=== PATIENT | female | born 1945 | race African-American/Black ===

== ENCOUNTER 2024-09-05 09:10 | Emergency (ER) | payer MEDICARE, OTHER ==
[~2024-09-05] VITALS: Ht 167.6 cm; Wt 80.0 kg
[2024-09-05 09:15] VITALS: O2SAT 98
[2024-09-05 09:30] VITALS: PULSE 95; RESP 24; O2SAT 99
[2024-09-05] MEDS: NOREPINEPHRINE 8MG/250ML PMX 250 ML IV ONE ×2 (09:30→10:30)
[2024-09-05] MEDS ORDERED: FENTANYL 2500MCG/250ML PMX 250 ML IV ONE (09:45)
[2024-09-05] MEDS: SODIUM CHLORIDE 0.9% 1,000 ML IV ONE (09:45)
[2024-09-05] MEDS ORDERED: MIDAZOLAM HCL 2 MG/2 ML VIAL IV PRN (09:45)
[2024-09-05] MEDS: FENTANYL CITRATE/PF 1,000 MCG in DEXT 5% WATER 80 ML IV PRN (10:00)
[2024-09-05 10:09] LABS: BASOPHILS % 0.8 % (0.0-2.0); EOSINOPHILS % 2.5 % (0.0-5.0); HEMATOCRIT. 30.3 % (36.0-48.0); MEAN CORPUSCULAR HEMOGLOBIN 27.9 pg (28.0-32.0); MEAN CORPUSCULAR HGB CONC 33.1 g/dL (31.0-37.0); MEAN CORPUSCULAR VOLUME 84.2 fL (81.0-99.0); MEAN PLATELET VOLUME 9.2 fl (7.4-10.4); MONOCYTES % 5.4 % (2.0-8.0); NEUTROPHILS % 60.3 % (40.0-76.0); PLATELET 301 x1000/uL (130-400); RED CELL DISTRIBUTION WIDTH 15.2 % (11.6-14.6); WHITE BLOOD COUNT 6.4 x1000/uL (4.5-11.0)
[2024-09-05] MEDS ORDERED: VASOPRESSIN 20 UNIT in SODIUM CHLORIDE 0.9% 99 ML IV STA (10:09)
[2024-09-05 10:17] LABS: CHLORIDE 105 mEq/L (98-107); POTASSIUM 3.2 mEq/L (3.5-5.1); SODIUM 138 mEq/L (136-145)
[2024-09-05 10:18] LABS: CARBON DIOXIDE 22 mEq/L (21-32)
[2024-09-05 10:19] LABS: CALCIUM 8.5 mg/dL (8.7-10.4)
[2024-09-05 10:23] LABS: GLUCOSE 278 mg/dL (70-105)
[2024-09-05 10:24] LABS: UREA NITROGEN BLOOD 11 mg/dL (9-23)
[2024-09-05 10:25] LABS: TROPONIN I HIGH SENSITIVITY 10 ng/L (3.0-34)
[2024-09-05 10:36] LABS: INR 1.1; PROTHROMBIN TIME 11.9 sec (9.6-11.0)
[2024-09-05] MEDS: VASOPRESSIN 20 UNIT in SODIUM CHLORIDE 0.9% 99 ML IV PRN (10:50)
[2024-09-05 11:06] LABS: BG BASE EXCESS -4.6 mmol/L (-2.0-3.0); BG CARBOXYHEMOGLOBIN 0.2 % (0.5-1.5); BG DEOXYHEMOGLOBIN 0.3 % (0.0-5.0); BG FRACTION INSPIRED OXYGEN 100; BG HCO3 ACT 19.8 mmol/L (21.0-28.0); BG METHEMOGLOBIN 0.3 % (0.5-1.5); BG OXYGEN SATURATION 99.7 % (94.0-98.0); BG OXYHEMOGLOBIN 99.2 % (94.0-98.0); BG PCO2 34.1 mmHg (32.0-45.0); BG PH 7.381 (7.350-7.450); BG PO2 455.4 mmHg (83.0-108.0); BG SAMPLE SITE RIGHT BRACHIAL; BG VENT MODE VENT - AC
[2024-09-05 11:19] LABS: ETHANOL BLOOD < 10 mg/dL (<10)
[2024-09-05 11:32] VITALS: PULSE 74; RESP 17; O2SAT 99
[2024-09-05] MEDS ORDERED: EPINEPHRINE 5 MG in SODIUM CHLORIDE 0.9% 245 ML IV STA (11:57)
[2024-09-05 12:05] LABS: LACTIC ACID 4.4 mmol/L (0.4-2.0)
[2024-09-05 12:08] LABS: CLARITY URINE CLOUDY (CLEAR); COLOR URINE YELLOW (YELLOW); GLUCOSE URINE NEGATIVE (NEGATIVE); KETONES URINE NEGATIVE (NEGATIVE); LEUKOCYTE ESTERASE URINE NEGATIVE (NEGATIVE); NITRITE URINE NEGATIVE (NEGATIVE); OCCULT BLOOD URINE NEGATIVE (NEGATIVE); PROTEIN URINE NEGATIVE (NEGATIVE); SPECIFIC GRAVITY URINE 1.012 (1.005-1.030); UROBILINOGEN URINE 0.2 E.U./dL (0.2-1.0)
[2024-09-05 12:25] LABS: *AMPHETAMINES SCREEN URINE NEGATIVE (NEGATIVE); *BARBITURATES SCREEN URINE NEGATIVE (NEGATIVE); *BENZODIAZEPINES SCREEN URINE NEGATIVE (NEGATIVE); *COCAINE SCREEN URINE NEGATIVE (NEGATIVE); CANNABINOID URINE SCREEN NEGATIVE (NEGATIVE); ECSTASY MDMA SCREEN URINE NEGATIVE (NEGATIVE); METHADONE URINE SCREEN NEGATIVE (NEGATIVE); OPIATES URINE SCREEN NEGATIVE (NEGATIVE); PHENCYCLIDINE URINE SCREEN NEGATIVE (NEGATIVE)
[2024-09-05 12:40] LABS: BACTERIA URINE 1+; RBC URINE 0-2 /hpf (0-2); SQUAMOUS EPITHELIAL CELL URINE NONE SEEN /lpf (RARE/1+); WBC URINE 0-2 /hpf (0-2); YEAST URINE NONE SEEN
[2024-09-05] MEDS: EPINEPHRINE 5 MG in SODIUM CHLORIDE 0.9% 245 ML IV PRN (13:00)
[2024-09-05 13:16] LABS: TROPONIN I HIGH SENSITIVITY 28 ng/L (3.0-34)
[2024-09-05 14:10] VITALS: PULSE 60; RESP 14
[2024-09-05] MEDS ORDERED: PHENYLEPHRINE 100 MG in DEXT 5% WATER 240 ML IV PRN (14:15)
[2024-09-05] MEDS ORDERED: ACETAMINOPHEN 325MG TABLET PO PRN (14:30)
[2024-09-05] MEDS ORDERED: ONDANSETRON HCL 4MG/2ML INJ IV PRN (14:30)
[2024-09-05] MEDS: PHENYLEPHRINE 100 MG in DEXT 5% WATER 240 ML IV PRN (14:42)
[2024-09-05] MEDS: SODIUM CHLORIDE 0.9% 1,000 ML IV SCH (15:00)
[2024-09-05] MEDS: PIPERACILLIN/TAZO 3.375G/50ML 50 ML IV SCH (15:00)
[2024-09-05] MEDS: KCL 20MEQ/100ML PREMIX 100 ML IV NR (16:24)
[2024-09-05 17:30] VITALS: PULSE 60; RESP 14; O2SAT 99
[2024-09-05] MEDS: INSULIN LISPRO 100 UNITS/ML SUBCUT SCH (18:00)
[2024-09-05] MEDS ORDERED: DEXTROSE 50% WATER 50ML SYRINGE IV PRN ×3 (18:00→21:45)
[2024-09-05] MEDS: BLOOD SUGAR DIAGNOSTIC STRIP TEST SCH ×2 (18:31→22:00)
[2024-09-05] MEDS ORDERED: NOREPINEPHRINE 8MG/250ML PMX 250 ML IV PRN (19:00)
[2024-09-05] MEDS: INSULIN REGULAR (HUMULIN R) 1000UNITS/10ML VIAL SUBCUT NR (19:25)
[2024-09-05] MEDS: SODIUM BICARBONATE 8.4% 50MEQ/50ML SYR IV NR ×4 (20:03→23:50)
[2024-09-05] MEDS ORDERED: LACTATED RINGERS 1,000 ML IV NR (20:15)
[2024-09-05 20:49] LABS: HEMATOCRIT. 33.4 % (36.0-48.0); HEMOGLOBIN. 10.4 g/dL (12.0-16.0); MEAN CORPUSCULAR HEMOGLOBIN 27.1 pg (28.0-32.0); MEAN CORPUSCULAR VOLUME 87.4 fL (81.0-99.0); MEAN PLATELET VOLUME 8.9 fl (7.4-10.4); PLATELET 240 x1000/uL (130-400); RED BLOOD CELL COUNT 3.82 mill/uL (4.2-5.4); RED CELL DISTRIBUTION WIDTH 15.4 % (11.6-14.6); WHITE BLOOD COUNT 21.1 x1000/uL (4.5-11.0)
[2024-09-05 20:55] LABS: POTASSIUM 3.2 mEq/L (3.5-5.1)
[2024-09-05 20:56] LABS: CALCIUM 6.7 mg/dL (8.7-10.4)
[2024-09-05 21:01] LABS: CREATININE 1.6 mg/dL (0.6-1.0); DIFFERENTIAL COMMENT 1
[2024-09-05] MEDS: DOPAMINE 400MG/250ML PREMIX 250 ML IV PRN (21:31)
[2024-09-05] MEDS: LACTATED RINGERS 1,000 ML IV NR (21:31)
[2024-09-05] MEDS ORDERED: INSULIN REGULAR 100U/100ML PMX 100 ML IV SCH (22:00)
[2024-09-05 22:07] VITALS: PULSE 55; RESP 18; O2SAT 97
[2024-09-05 22:53] LABS: PLATELET ESTIMATE NORMAL
[2024-09-05 22:59] LABS: BG BASE EXCESS -21.1 mmol/L (-2.0-3.0); BG CARBOXYHEMOGLOBIN 0.2 % (0.5-1.5); BG DEOXYHEMOGLOBIN 3.7 % (0.0-5.0); BG FRACTION INSPIRED OXYGEN 100; BG HCO3 ACT 8.2 mmol/L (21.0-28.0); BG METHEMOGLOBIN 0.3 % (0.5-1.5); BG OXYGEN SATURATION 96.3 % (94.0-98.0); BG OXYHEMOGLOBIN 95.8 % (94.0-98.0); BG PCO2 31.1 mmHg (32.0-45.0); BG SAMPLE SITE LEFT FEMORAL; BG TOTAL HEMOGLOBIN 10.1 g/dL (12.0-16.0); BG VENT MODE VENT - AC
[2024-09-05] MEDS: INSULIN REGULAR 100U/100ML PMX 100 ML IV SCH (23:01)
[2024-09-06 01:00] VITALS: TEMP 34.78056
[2024-09-06 02:03] VITALS: PULSE 37; RESP 22; O2SAT 95
[2024-09-06] MEDS ORDERED: NOREPINEPHRINE 8MG/250ML PMX 250 ML IV PRN (03:15)
[2024-09-06 03:34] VITALS: BP 42/19; PULSE 90; RESP 17; O2SAT 98
[2024-09-06] MEDS ORDERED: PANTOPRAZOLE SODIUM 40 MG/VIAL IV SCH (09:00)
== END 2024-09-06 06:18 ==
LOC: ER 09:37 → EDBEDREQ 11:57 → EDBEDREQTM 11:57 → ER 09-06 06:18
DX: J96.01 Acute respiratory failure with hypoxia (principal); I10 Essential (primary) hypertension; F10.20 Alcohol dependence, uncomplicated; K21.9 Gastro-esophageal reflux disease without esophagitis
CPT/HCPCS: 80305; 80048; 81003; 80320; 82962; 83880; 83605; 83690; 85025; 85610; 86850; 86870; 86900; 86901; 84484; 36415; 84145; 71045; 82805; 82375; 92950; 31500; 94664; 94070; 98960; 96367; 96361; 96365; 96366 ×2; 99291; 36600; J3010; J3490 ×6; J1815 ×2; J2543; J3480; J7060 ×3; J7050 ×3; J7030; J1265 ×2; 94002; J2250; G0480